=== PATIENT | female | born 1990 | race Caucasian/White ===

== ENCOUNTER 2017-09-04 12:11 | Inpatient (IN) | payer BC ==
[~2017-09-04] VITALS: Ht 154.9 cm; Wt 73.2 kg
[2017-09-04] MEDS ORDERED: SODIUM CHLORIDE 0.9% 1,000 ML IV ONE ×2 (12:43→17:03)
[2017-09-04] MEDS ORDERED: SODIUM CHLORIDE 0.9% 1,000ML IVBOLUS ONE ×2 (13:00→15:00)
[2017-09-04] MEDS ORDERED: SODIUM CHLORIDE FLUSH 10ML SYR IVF ONE (13:00)
[2017-09-04 13:19] LABS: HEMATOCRIT 39.4 % (34.6-47.8); HEMOGLOBIN 13.5 g/dL (11.7-16.4); WHITE BLOOD COUNT 18.5 x10^3/uL (3.4-10)
[2017-09-04 13:32] LABS: BLOOD UREA NITROGEN 10 mg/dL (7-18)
[2017-09-04 13:36] LABS: ASPARTATE AMINO TRANSFERASE 14 U/L (15-37)
[2017-09-04] MEDS ORDERED: insulin pump (14:28)
[2017-09-04] MEDS ORDERED: LEVO50TA5 PO (14:28)
[2017-09-04 14:40] LABS: PH, VENOUS 7.296 pH (7.320-7.420)
[2017-09-04] MEDS ORDERED: METOCLOPRAMIDE 5 MG/ML, 2ML ONE (14:58)
[2017-09-04] MEDS ORDERED: DIPHENHYDRAMINE 50 MG/ML, 1ML ONE (14:58)
[2017-09-04] MEDS ORDERED: METOCLOPRAMIDE 5 MG/ML, 2ML IVPush ONE (15:00)
[2017-09-04] MEDS ORDERED: DIPHENHYDRAMINE 50 MG/ML, 1ML IVPush ONE (15:00)
[2017-09-04] MEDS ORDERED: ONDANSETRON 2MG/ML, 2ML IVPush PRN (19:30)
[2017-09-04] MEDS ORDERED: DEXTROSE 50%, 50ML SYRINGE IVPush PRN (19:30)
[2017-09-04] MEDS ORDERED: GLUCAGON 1 MG IM PRN (19:30)
[2017-09-04] MEDS ORDERED: DEXTROSE 4 GM TAB.CHEW PO PRN (19:30)
[2017-09-04] MEDS ORDERED: INSULIN REGULAR 100 UNITS/ML, 3ML VIAL IVPush ONE (19:30)
[2017-09-04 20:07] LABS: BLOOD UREA NITROGEN 7 mg/dL (7-18)
[2017-09-04] MEDS: SODIUM CHLORIDE FLUSH 10ML SYR IVF SCH (21:00)
[2017-09-04] MEDS: INSULIN ASPART 100 UNITS/ML, PEN SQ-INSULIN SCH (21:00)
[2017-09-04] MEDS ORDERED: INSULIN REGULAR 100 UNITS/ML, 3ML VIAL ONE (21:14)
[2017-09-04] MEDS: D5%-0.45% NACL 1,000 ML IV SCH (21:21)
[2017-09-04 21:45] VITALS: BP 108/57
[2017-09-04] MEDS: NITROFURANTOIN (MACROBID) 100 MG CAPSULE PO SCH (22:13)
[2017-09-04] MEDS: ACETAMINOPHEN 325 MG TABLET PO PRN (22:13)
[2017-09-05 00:04] LABS: BLOOD UREA NITROGEN 7 mg/dL (7-18)
[2017-09-05 01:04] VITALS: BP 101/56
[2017-09-05] MEDS: D5%-0.45% NACL 1,000 ML IV SCH (02:41)
[2017-09-05 03:57] LABS: BLOOD UREA NITROGEN 6 mg/dL (7-18)
[2017-09-05] MEDS ORDERED: SODIUM CHLORIDE 0.45% 1,000 ML IV SCH (04:30)
[2017-09-05] MEDS: ACETAMINOPHEN 325 MG TABLET PO PRN ×2 (05:03→13:42)
[2017-09-05] MEDS ORDERED: LEVOTHYROXINE 50 MCG TABLET PO SCH (06:00)
[2017-09-05] MEDS ORDERED: SODIUM PHOSPHATE 10 MMOL in SODIUM CHLORIDE 0.9% 500 ML IV ONE (06:30)
[2017-09-05] MEDS ORDERED: MAGNESIUM SULFATE PMX 2GM/50ML 50 ML IV ONE (06:30)
[2017-09-05] MEDS: INSULIN ASPART 100 UNITS/ML, PEN SQ-INSULIN SCH ×2 (07:00→11:00)
[2017-09-05 07:32] LABS: BLOOD UREA NITROGEN 6 mg/dL (7-18)
[2017-09-05 08:10] VITALS: BP 105/68
[2017-09-05] MEDS: NITROFURANTOIN (MACROBID) 100 MG CAPSULE PO SCH (08:35)
[2017-09-05] MEDS: SODIUM CHLORIDE FLUSH 10ML SYR IVF SCH (08:36)
[2017-09-05 12:11] LABS: BLOOD UREA NITROGEN 5 mg/dL (7-18)
[2017-09-05] MEDS ORDERED: NITR100C6 PO (14:17)
[2017-09-05 14:32] VITALS: BP 110/67
== END 2017-09-05 15:26 | disposition home or self-care (01) | DRG 781 ==
LOC: ED 16:13 → EDIP 19:16 → 4WST 21:45 → DCLOUNGE 09-05 15:20
PROVIDERS: ADMIT Family Medicine; ATTEND Family Medicine
DX: O99.282 Endocrine, nutritional and metabolic diseases complicating pregnancy, second trimester (principal); E10.10 Type 1 diabetes mellitus with ketoacidosis without coma; O99.352 Diseases of the nervous system complicating pregnancy, second trimester; E86.0 Dehydration; G43.909 Migraine, unspecified, not intractable, without status migrainosus; E03.9 Hypothyroidism, unspecified; Z96.41 Presence of insulin pump (external) (internal); O23.42 Unspecified infection of urinary tract in pregnancy, second trimester; O16.2 Unspecified maternal hypertension, second trimester; Z88.0 Allergy status to penicillin; Z79.4 Long term (current) use of insulin; Z3A.23 23 weeks gestation of pregnancy
CPT/HCPCS: 36415; 76819; 80048; 80053; 81001; 82010; 82803; 82962; 83735; 84100; 85025; 87086; 96361; 96374; 96375; J1200; J2765; J3475; J7030; J7040